=== PATIENT | male | born 1975 | race African-American/Black ===

== ENCOUNTER 2018-01-16 08:10 | Observation (INO) | payer SELFPAY ==
[2018-01-16] VITALS (7 sets, daily range): BP systolic 129–147; BP diastolic 74–84; PULSE 66–83; RESP 16–18; TEMP 97–98.5; O2SAT 98–100
[~2018-01-16] VITALS: Ht 177.8 cm; Wt 78.0 kg
[~2018-01-16 08:10] MED LIST: Z.0.NO CURRENT MEDS
[2018-01-16] MEDS ORDERED: SODIUM CHLOR 0.9% 1000 ML INJ 1,000 ML IV ONE ×2 (08:30→10:45)
[2018-01-16] MEDS ORDERED: KETOROLAC TROMETHAMINE 30 MG/ML (IVP) VIAL IV PUSH ONE (08:30)
[2018-01-16 08:45] LABS: AUTOMATED NEUTROPHIL # 10.3 TH/MM3 (1.8-7.7); BASOPHIL % 0.2 % (0.0-2.0); EOSINOPHIL % 0.2 % (0.0-4.0); HEMATOCRIT 38.4 % (39.0-51.0); HEMOGLOBIN 12.9 GM/DL (13.0-17.0); LYMPH % 9.2 % (9.0-44.0); LYMPHOCYTE # 1.1 TH/MM3 (1.0-4.8); MEAN CELL VOLUME 90.7 FL (80.0-100.0); MEAN CORPUSCULAR HEMOGLOBIN 30.4 PG (27.0-34.0); MEAN CORPUSCULAR HGB CONC 33.5 % (32.0-36.0); MEAN PLATELET VOLUME 7.2 FL (7.0-11.0); MONOCYTE # 0.7 TH/MM3 (0-0.9); NEUT % 84.4 % (16.0-70.0); PLATELET COUNT 304 TH/MM3 (150-450); RED BLOOD COUNT 4.24 MIL/MM3 (4.50-5.90); RED CELL DISTRIBUTION WIDTH 13.1 % (11.6-17.2); WHITE BLOOD COUNT 12.2 TH/MM3 (4.0-11.0)
--- NOTE | 2018-01-16 08:53 | PD ---
HPI Chief Complaint: Abdominal Pain Time Seen by Provider: 08:18 Travel History International Travel<30 days: No Contact w/Intl Traveler<30days: No Traveled to known affect area: No History of Present Illness HPI 42 y/o male presents with diffuse abdominal pain since 415 this morning. He states he was fine last evening and ate a large pizza and had a couple of beers in the pain did not start till this morning. He denies any other concurrent complaints. Quality is sharp. Severity is moderate. He denies any specific modifying factors. He denies any specific migration. He denies recurrent history of this. [facility] Past Medical History Medical History: Denies Significant Hx Past Surgical History Surgical History: No Previous Surgery Social History Alcohol Use: Yes (2 beers daily) Tobacco Use: Yes (1/2 ppd) Substance Use: Yes (Notes marijuana use) Allergies-Medications (Allergen,Severity, Reaction): Coded Allergies: No Known Allergies (Verified Allergy, Mild, 04/07/07) Reported Meds & Prescriptions Reported Meds & Active Scripts Active Reported No Current Meds (Miscellaneous Medication) Misc Review of Systems Except as stated in HPI: all other systems reviewed are Neg Physical Exam Narrative GENERAL: 42-year-old male in no apparent distress SKIN: Focused skin assessment warm/dry. HEAD: Atraumatic. Normocephalic. EYES: Pupils equal and round. No scleral icterus. No injection or drainage. ENT: No nasal bleeding or discharge. Mucous membranes pink and moist. NECK: Trachea midline. CARDIOVASCULAR: Regular rate and rhythm. RESPIRATORY: No accessory muscle use. Clear to auscultation. Breath sounds equal bilaterally. GASTROINTESTINAL: Abdomen soft, diffusely tender, nondistended. No rebound or guarding MUSCULOSKELETAL: No obvious deformities. No clubbing. No cyanosis. No edema. NEUROLOGICAL: Awake and alert. No obvious cranial nerve deficits. Motor grossly within normal limits. Normal speech. Data Data Last Documented VS Vital Signs Date Time Temp Pulse Resp B/P (MAP) Pulse Ox O2 Delivery O2 Flow Rate FiO2 01/16/18 09:51 18 01/16/18 08:26 66 147/74 (98) 99 Room Air 01/16/18 08:13 97.5 Orders Orders Complete Blood Count With Diff (01/16/18 08:20) Comprehensive Metabolic Panel (01/16/18 08:20) Urinalysis - C+S If Indicated (01/16/18 08:20) Lipase (01/16/18 08:20) Iv Access Insert/Monitor (01/16/18 08:20) Oximetry (01/16/18 08:20) Ct Abd/Pel W Iv Contrast(Rout) (01/16/18 ) Ketorolac Inj (Toradol Inj) (01/16/18 08:30) Sodium Chlor 0.9% 1000 Ml Inj (Ns 1000 M (01/16/18 08:30) Iohexol 350 Inj (Omnipaque 350 Inj) (01/16/18 09:58) Morphine Inj (Morphine Inj) (01/16/18 10:30) Admit Order (Ed Use Only) (01/16/18 10:35) Labs Laboratory Tests Test 01/16/18 08:30 White Blood Count 12.2 TH/MM3 Red Blood Count 4.24 MIL/MM3 Hemoglobin 12.9 GM/DL Hematocrit 38.4 % Mean Corpuscular Volume 90.7 FL Mean Corpuscular Hemoglobin 30.4 PG Mean Corpuscular Hemoglobin Concent 33.5 % Red Cell Distribution Width 13.1 % Platelet Count 304 TH/MM3 Mean Platelet Volume 7.2 FL Neutrophils (%) (Auto) 84.4 % Lymphocytes (%) (Auto) 9.2 % Monocytes (%) (Auto) 6.0 % Eosinophils (%) (Auto) 0.2 % Basophils (%) (Auto) 0.2 % Neutrophils # (Auto) 10.3 TH/MM3 Lymphocytes # (Auto) 1.1 TH/MM3 Monocytes # (Auto) 0.7 TH/MM3 Eosinophils # (Auto) 0.0 TH/MM3 Basophils # (Auto) 0.0 TH/MM3 CBC Comment DIFF FINAL Differential Comment Blood Urea Nitrogen 11 MG/DL Creatinine 1.07 MG/DL Random Glucose 136 MG/DL Total Protein 7.7 GM/DL Albumin 4.0 GM/DL Calcium Level 9.3 MG/DL Alkaline Phosphatase 82 U/L Aspartate Amino Transf (AST/SGOT) 94 U/L Alanine Aminotransferase (ALT/SGPT) 79 U/L Total Bilirubin 1.0 MG/DL Sodium Level 141 MEQ/L Potassium Level 3.7 MEQ/L Chloride Level 109 MEQ/L Carbon Dioxide Level 26.5 MEQ/L Anion Gap 6 MEQ/L Lipase 3702 U/L [facility] Medical Decision Making Medical Screen Exam Complete: Yes Emergency Medical Condition: Yes Medical Record Reviewed: Yes (Past history confirmed) Interpretation(s) CBC & BMP Diagram 01/16/18 08:30 Total Protein 7.7, Albumin 4.0, Calcium Level 9.3, Alkaline Phosphatase 82, Aspartate Amino Transf (AST/SGOT) 94 H, Alanine Aminotransferase (ALT/SGPT) 79 H , Total Bilirubin 1.0 Last 24 hours Impressions Abdomen/Pelvis CT 01/16/18 0000 Signed Impressions: Service Date/Time: Tuesday, January 16, 2018 09:53 - CONCLUSION: 1. Slight indistinctness of the pancreas and minimal peripancreatic stranding, pancreatitis cannot be excluded. Correlation with amylase/lipase levels. 2. Remainder of the abdomen/pelvis otherwise unremarkable. Donald العلي MD lipase elevation noted Differential Diagnosis Gastritis, pancreatitis, kidney stone, colitis, diverticulitis Narrative Course We will check blood work, urinalysis, CT scan abdominal pelvis and dose with Toradol and reevaluate as patient states he does not have a ride today ED workup with pancreatitis. Patient with return of pain so will dose with morphine and patient agrees to admission for pain control and further care Physician Communication Physician Communication resident team agrees to admit Diagnosis Primary Impression: Pancreatitis Qualified Codes: K85.20 - Alcohol induced acute pancreatitis without necrosis or infection Admitting Information Admitting Physician Requests: Admit Cierra Pickett MD Jan 16, 2018 08:53
[2018-01-16 09:08] LABS: AST (GOT) 94 U/L (15-37); BICARBONATE 26.5 MEQ/L (21.0-32.0); BLOOD UREA NITROGEN 11 MG/DL (7-18); CALCIUM 9.3 MG/DL (8.5-10.1); CHLORIDE 109 MEQ/L (98-107); CREATININE 1.07 MG/DL (0.60-1.30); GLUCOSE,RANDOM 136 MG/DL (74-106); SODIUM (NA) 141 MEQ/L (136-145)
[2018-01-16 09:10] LABS: ALT (GPT) 79 U/L (12-78)
[2018-01-16 09:11] LABS: ALKALINE PHOSPHATASE 82 U/L (45-117); TOTAL PROTEIN 7.7 GM/DL (6.4-8.2)
[2018-01-16] MEDS ORDERED: IOHEXOL 350 MG/ML 10 ML VIAL (for RAD DIAG) IVCONTRAST ONE (09:58)
--- NOTE | 2018-01-16 10:07 | RADRPT ---
EXAM DATE/TIME: 01/16/2018 09:53 [facility] COMPARISON: No previous studies available for comparison. INDICATIONS : Abdominal pain. IV CONTRAST: 85 cc Omnipaque 350 (iohexol) IV ORAL CONTRAST: No oral contrast ingested. RADIATION DOSE: 5.24 CTDIvol (mGy) MEDICAL HISTORY : None SURGICAL HISTORY : None. ENCOUNTER: Initial ACUITY: 1 day PAIN SCALE: 9/10 LOCATION: Abdomen. TECHNIQUE: Volumetric scanning of the abdomen and pelvis was performed. Using automated exposure control and ad justment of the mA and/or kV according to patient size, radiation dose was kept as low as reasonably achievable to obtain optimal diagnostic quality images. DICOM format image data is available electro nically for review and comparison. FINDINGS: LOWER LUNGS: The visualized lower lungs are clear. LIVER: Homogeneous density without lesion. There is no dilation of the biliary tree. No calcified gallston es. SPLEEN: Normal size without lesion. PANCREAS: Slight indistinctness with minimal peripancreatic stranding. No mass or fluid collections. KIDNEYS: Normal in size and shape. There is no mass, stone or hydronephrosis. ADRENAL GLANDS: Within normal limits. VASCULAR: There is no aortic aneurysm. BOWEL/MESENTERY: The stomach, small bowel, and colon demonstrate no acute abnormality. There is no free intraperitone al air or fluid. ABDOMINAL WALL: Within normal limits. RETROPERITONEUM: There is no lymphadenopathy. BLADDER: No wall thickening or mass. REPRODUCTIVE: Within normal limits. INGUINAL: There is no lymphadenopathy or hernia on the right. Small left fat containing inguinal hernia. MUSCULOSKELETAL: Within normal limits for patient age. CONCLUSION: 1. Slight indistinctness of the pancreas and minimal peripancreatic stranding, pancreatitis cannot be excluded. Correlation with amylase/lipase levels. 2. Remainder of the abdomen/pelvis otherwise unremarkable. Donald العلي MD on January 16, 2018 at 10:03 Board Certified Radiologist. This report was verified electronically.
[2018-01-16] MEDS ORDERED: MORPHINE SULFATE 4 MG/ML INJ IV PUSH ONE (10:30)
--- NOTE | 2018-01-16 11:00 | HHI.HP ---
HPI Service Family Medicine Primary Care Physician No Primary Care Physician Admission Diagnosis pancreatitis Diagnoses: International Travel<30 Days: No Contact w/Intl Traveler<30days: No Known Affected Area: No History of Present Illness 42 y/o M, comes in with abdominal pain. He woke up at 2AM and felt severe pain in the LLQ radiating to the epigastric area. The pain is sharp like a knife. He denies any radiation down the back or groin areas. The pain has been getting progressively worse through the day. He has been nauseas as well. Denies constipation/diarrhea. He has had normal BMs this morning. Denies any change in urination. He used to have biliary colic but hasn't had issues in years. He felt a brief pain in his LUQ for 30minutes on Monday. His last drink was at 9PM last night, he had 4-5 beers. He usually just drinks on weekends. He denies ever drinking any liquor. Denies any chest pain/ shortness of breath/dizziness. Review of Systems Constitutional: DENIES: Fever, Weight loss Endocrine: DENIES: Polyuria Eyes: DENIES: Vision loss Ears, nose, mouth, throat: DENIES: Oral lesions, Throat pain Respiratory: DENIES: Cough, Wheezing Cardiovascular: DENIES: Palpitations, Syncope Gastrointestinal: DENIES: Diarrhea, Vomiting Genitourinary: DENIES: Urinary frequency, Urinary incontinence Integumentary: DENIES: Rash Neurologic: DENIES: Headache Psychiatric: DENIES: Mood changes, Depression Past Family Social History Past Medical History HTN GERD Past Surgical History L shoulder surgery x 2 (>10years ago) R knee arthroscopy in 2010, meniscal injury Allergies: Coded Allergies: No Known Allergies (Verified Allergy, Mild, 04/07/07) Family History Brother - [place] Social History smoking: never alcohol: 4-5 beers 2 days/week 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 SKIN: No rashes, ecchymoses or lesions. Cool and dry. HEAD: Atraumatic. Normocephalic. No temporal or scalp tenderness. EYES: Pupils equal round and reactive. Extraocular motions intact. No scleral icterus. No injection or drainage. ENT: Nose without bleeding, purulent drainage or septal hematoma. Throat without erythema, tonsillar hypertrophy or exudate. Uvula midline. Airway patent. NECK: Trachea midline. No JVD or lymphadenopathy. Supple, nontender, no meningeal signs. CARDIOVASCULAR: Regular rate and rhythm without murmurs, gallops, or rubs. RESPIRATORY: Clear to auscultation. Breath sounds equal bilaterally. No wheezes , rales, or rhonchi. GASTROINTESTINAL: Abdomen soft, tender to mild palpation of left upper quadrant and left lower quadrant, tender in epigastric area, nondistended. No hepato- splenomegaly, or palpable masses. No guarding. Positive bowel sounds. No peritoneal signs. MUSCULOSKELETAL: Extremities without clubbing, cyanosis, or edema. No joint tenderness, effusion, or edema noted. No calf tenderness. Negative Homans sign bilaterally. NEUROLOGICAL: Awake and alert. Cranial nerves II through XII intact. Motor and sensory grossly within normal limits. Five out of 5 muscle strength in all muscle groups. Normal speech. Laboratory Laboratory Tests Test 01/16/18 08:30 White Blood Count 12.2 Red Blood Count 4.24 Hemoglobin 12.9 Hematocrit 38.4 Mean Corpuscular Volume 90.7 Mean Corpuscular Hemoglobin 30.4 Mean Corpuscular Hemoglobin Concent 33.5 Red Cell Distribution Width 13.1 Platelet Count 304 Mean Platelet Volume 7.2 Neutrophils (%) (Auto) 84.4 Lymphocytes (%) (Auto) 9.2 Monocytes (%) (Auto) 6.0 Eosinophils (%) (Auto) 0.2 Basophils (%) (Auto) 0.2 Neutrophils # (Auto) 10.3 Lymphocytes # (Auto) 1.1 Monocytes # (Auto) 0.7 Eosinophils # (Auto) 0.0 Basophils # (Auto) 0.0 CBC Comment DIFF FINAL Differential Comment Blood Urea Nitrogen 11 Creatinine 1.07 Random Glucose 136 Total Protein 7.7 Albumin 4.0 Calcium Level 9.3 Alkaline Phosphatase 82 Aspartate Amino Transf (AST/SGOT) 94 Alanine Aminotransferase (ALT/SGPT) 79 Total Bilirubin 1.0 Sodium Level 141 Potassium Level 3.7 Chloride Level 109 Carbon Dioxide Level 26.5 Anion Gap 6 Lipase 3702 Result Diagram: 01/16/1882901/16/18829 Caprin VTE Risk Assessment Caprin VTE Risk Assessment: No/Low Risk (score <= 1) Caprini Risk Assessment Model Point Value = 1 Point Value = 2 Point Value = 3 Point Value = 5 Age 41-60 Minor surgery BMI > 25 kg/m2 Swollen legs Varicose veins or History of unexplained or recurrent spontaneous Oral contraceptives or hormone replacement Sepsis (< 1 month) Serious lung disease, including pneumonia (< 1 month) Abnormal pulmonary function Acute myocardial infarction Congestive heart failure (< 1 month) History of inflammatory bowel disease Medical patient at bed rest Age 61-74 Arthroscopic surgery Major open surgery (> 45 min) Laparoscopic surgery (> 45 min) Malignancy Confined to bed (> 72 hours) Immobilizing plaster cast Central venous access Age >= 75 History of VTE Family history of VTE Factor V Leiden Prothrombin [id number] Lupus anticoagulant Anticardiolipin antibodies Elevated serum homocysteine Heparin-induced thrombocytopenia Other congenital or acquired thrombophilia Stroke (< 1 month) Elective arthroplasty Hip, pelvis, or leg fracture Acute spinal cord injury (< 1 month) Prophylaxis Regimen Total Risk Factor Score Risk Level Prophylaxis Regimen 0-1 Low Early ambulation 2 Moderate Order ONE of the following: *Sequential Compression Device (SCD) *Heparin 5000 units SQ BID 3-4 Higher Order ONE of the following medications: *Heparin 5000 units SQ TID *Enoxaparin/Lovenox 40 mg SQ daily (WT < 150 kg, CrCl > 30 mL/min) *Enoxaparin/Lovenox 30 mg SQ daily (WT < 150 kg, CrCl > 10-29 mL/min) *Enoxaparin/Lovenox 30 mg SQ BID (WT < 150 kg, CrCl > 30 mL/min) AND/OR *Sequential Compression Device (SCD) 5 or more Highest Order ONE of the following medications: *Heparin 5000 units SQ TID (Preferred with Epidurals) *Enoxaparin/Lovenox 40 mg SQ daily (WT < 150 kg, CrCl > 30 mL/min) *Enoxaparin/Lovenox 30 mg SQ daily (WT < 150 kg, CrCl > 10-29 mL/min) *Enoxaparin/Lovenox 30 mg SQ BID (WT < 150 kg, CrCl > 30 mL/min) AND *Sequential Compression Device (SCD) Assessment and Plan Assessment and Plan 42-year-old male, occasional drinker with possible history of biliary colic, presents with pancreatitis. Code Status Full code Problem List: (1) Pancreatitis ICD Codes: K85.90 - Acute pancreatitis without necrosis or infection, unspecified Status: Acute Plan: Alcohol-induced pancreatitis versus gallstone pancreatitis IV fluid hydration at 200 mls/hr Pain control with scheduled IV Toradol Dilaudid for breakthrough pain Zofran for nausea control Follow-up abdominal ultrasound Follow-up serum alcohol level CT with contrast: Slight indistinctness of the pancreas, minimal peripancreatic stranding, pancreatitis cannot be excluded. Correlation with amylase/lipase levels (2) Alcohol use ICD Codes: Z78.9 - Other specified health status Status: Chronic Plan: Possible history of alcohol abuse [facility] protocol Follow-up serum alcohol level f/u urine drug screen (3) Hypertension ICD Codes: I10 - Essential (primary) hypertension Status: Chronic Plan: BP is normal Continue home medication (4) fen/ppx Status: Chronic Plan: Fluids: 1.5 maintenance fluids Electrolytes: BMP normal, follow-up BNP in a.m. Nutrition: N.p.o. until reevaluation tomorrow GI prophylaxis: Continue Protonix 20 mg daily DVT prophylaxis: Lovenox 40 mg daily Physician Certification 2 Midnight Certification Type: Admission for Inpatient Services Order for Inpatient Services The services are ordered in accordance with Medicare regulations or non- Medicare payer requirements, as applicable. In the case of services not specified as inpatient-only, they are appropriately provided as inpatient services in accordance with the 2-midnight benchmark. Estimated LOS (days): 2 days is the estimated time the patient will need to remain in the hospital, assuming treatment plan goals are met and no additional complications. Post-Hospital Plan: Home Problem Qualifiers (1) Pancreatitis: Qualified Codes: K85.20 - Alcohol induced acute pancreatitis without necrosis or infection Mónica Alvarado MD R2 Jan 16, 2018 11:00
[2018-01-16] MEDS ORDERED: ONDANSETRON HCL 4 MG/2 ML VIAL IV PUSH PRN (11:30)
[2018-01-16] MEDS ORDERED: SODIUM CHLORIDE 0.9% FLUSH 10 ML FLUSH IV FLUSH PRN ×2 (11:30→15:45)
[2018-01-16] MEDS: PANTOPRAZOLE SOD 20 MG DELAYED RELEASE TAB PO SCH (12:41)
[2018-01-16] MEDS: ENOXAPARIN SODIUM 40 MG/0.4 ML SYRINGE SQ SCH (12:41)
[2018-01-16] MEDS: KETOROLAC TROMETHAMINE 30 MG/ML (IVP) VIAL IVP SCH ×2 (12:42→20:00)
[2018-01-16 12:55] LABS: BILIRUBIN, URINE NEG (NEG); BLOOD, URINE NEG (NEG); GLUCOSE,URINE NEG (NEG); KETONE, URINE NEG (NEG); MUCUS URINE FEW /lpf (OCC); NITRITE,URINE NEG (NEG); PH, URINE 5.5 (5.0-8.5); SQUAMOUS EPITHELIAL CELL URINE <1 /hpf (0-5); URINE COLOR YELLOW (YELLW/STRAW); URINE LEUKOCYTE ESTERASE NEG (NEG)
[2018-01-16 13:31] LABS: ALBUMIN 3.4 GM/DL (3.4-5.0); ALKALINE PHOSPHATASE 71 U/L (45-117); ALT (GPT) 61 U/L (12-78); AST (GOT) 67 U/L (15-37); BICARBONATE 23.6 MEQ/L (21.0-32.0); BLOOD UREA NITROGEN 8 MG/DL (7-18); C-REACTIVE PROTEIN LESS THAN 0.29 MG/DL (0.00-0.30); CALCIUM 8.3 MG/DL (8.5-10.1); CHLORIDE 110 MEQ/L (98-107); CREATININE 0.85 MG/DL (0.60-1.30); GLOMERULAR FILTRATION RATE 119 ML/MIN (>89); GLUCOSE,FASTING 110 MG/DL (74-99); GLUCOSE,RANDOM 110 MG/DL (74-106); SODIUM (NA) 143 MEQ/L (136-145); TOTAL BILIRUBIN ADULT 1.1 MG/DL (0.2-1.0); TOTAL PROTEIN 6.5 GM/DL (6.4-8.2); TRIGLYCERIDES 140 MG/DL (42-150)
[2018-01-16] MEDS: SODIUM CHLOR 0.9% 1000 ML INJ 1,000 ML IV SCH ×2 (15:32→18:09)
[2018-01-16] MEDS: HYDROmorphone HCL PF 2 MG/ML VIAL IV PUSH PRN (15:32)
[2018-01-16] MEDS ORDERED: LORazepam 2 MG/ML VIAL IV PUSH PRN ×4 (15:45)
[2018-01-16] MEDS ORDERED: FLUMAZENIL 0.5 MG/5 ML VIAL IV PUSH PRN (15:45)
[2018-01-16] MEDS ORDERED: LORazepam 1 MG TAB PO PRN (15:45)
[2018-01-16] MEDS ORDERED: LORazepam 2 MG TAB PO PRN (15:45)
--- NOTE | 2018-01-16 17:36 | RADRPT ---
EXAM DATE/TIME: 01/16/2018 16:38 [facility] COMPARISON: No previous studies available for comparison. INDICATIONS : Right upper quadrant pain. MEDICAL HISTORY : Alcohol use. Substance use. Tobacco use. SURGICAL HISTORY : None. ENCOUNTER: Initial ACUITY: 1 day PAIN SCORE: 6/10 LOCATION: Right upper quadrant MEASUREMENTS: LIVER: 17.0 cm length COMMON DUCT: 5 mm RIGHT KIDNEY: 10.9 x 4.1 x 4.7 cm FINDINGS: LIVER: Normal echotexture without focal lesion or ductal dilatation. COMMON DUCT: No intraluminal mass or stone visualized. GALLBLADDER: Contains no stones, demonstrates no wall thickening or pericholecystic fluid. PANCREAS: The visualized portions are within normal limits. RIGHT KIDNEY: No evidence of hydronephrosis, stone, or mass. MISCELLANEOUS: Minimal amount of ascites just inferior to the right kidney/liver CONCLUSION: 1. Minimal amount of ascites inferior to the kidney and liver. 2. Otherwise negative. Patrick Jones MD on January 16, 2018 at 17:33 Board Certified Radiologist. This report was verified electronically.
[2018-01-16] MEDS: MULTIVITAMIN INJ 10 ML, FOLIC ACID INJ 1 MG in SODIUM CHLORID 0.9% 500 ML INJ 500 ML IV SCH (18:08)
[2018-01-16] MEDS: SODIUM CHLORIDE 0.9% FLUSH 10 ML FLUSH IV FLUSH SCH (21:00)
[2018-01-16] MEDS ORDERED: SODIUM CHLORIDE 0.9% FLUSH 10 ML FLUSH IV FLUSH SCH (21:00)
[2018-01-17] MEDS: THIAMINE INJ 100 MG in SODIUM CHLORIDE 0.9% INJ 100 ML IV SCH ×2 (00:12→17:17)
[2018-01-17] MEDS: SODIUM CHLOR 0.9% 1000 ML INJ 1,000 ML IV SCH ×5 (00:17→18:28)
[2018-01-17 02:16] VITALS: BP 142/80; PULSE 65; RESP 16; TEMP 99.1; O2SAT 97
[2018-01-17] MEDS: KETOROLAC TROMETHAMINE 30 MG/ML (IVP) VIAL IVP SCH ×3 (03:55→19:58)
[2018-01-17 05:27] LABS: BASOPHIL % 0.1 % (0.0-2.0); EOSINOPHIL # 0.2 TH/MM3 (0-0.4); HEMATOCRIT 31.6 % (39.0-51.0); HEMOGLOBIN 10.7 GM/DL (13.0-17.0); LYMPH % 12.3 % (9.0-44.0); LYMPHOCYTE # 1.1 TH/MM3 (1.0-4.8); MEAN CORPUSCULAR HEMOGLOBIN 30.9 PG (27.0-34.0); MEAN PLATELET VOLUME 7.7 FL (7.0-11.0); MONO % 7.3 % (0.0-8.0); MONOCYTE # 0.7 TH/MM3 (0-0.9); NEUT % 78.3 % (16.0-70.0); PLATELET COUNT 237 TH/MM3 (150-450); RED BLOOD COUNT 3.47 MIL/MM3 (4.50-5.90); RED CELL DISTRIBUTION WIDTH 12.9 % (11.6-17.2)
[2018-01-17 05:51] LABS: ALBUMIN 2.8 GM/DL (3.4-5.0); ALKALINE PHOSPHATASE 59 U/L (45-117); ALT (GPT) 43 U/L (12-78); AST (GOT) 34 U/L (15-37); BICARBONATE 24.2 MEQ/L (21.0-32.0); BLOOD UREA NITROGEN 4 MG/DL (7-18); CALCIUM 8.1 MG/DL (8.5-10.1); CHLORIDE 113 MEQ/L (98-107); CREATININE 0.73 MG/DL (0.60-1.30); GLOMERULAR FILTRATION RATE 141 ML/MIN (>89); GLUCOSE,RANDOM 104 MG/DL (74-106); SODIUM (NA) 145 MEQ/L (136-145); TOTAL BILIRUBIN ADULT 1.3 MG/DL (0.2-1.0); TOTAL PROTEIN 5.7 GM/DL (6.4-8.2)
[2018-01-17 05:54] VITALS: BP 134/73; PULSE 65; RESP 16; TEMP 98.4; O2SAT 98
--- NOTE | 2018-01-17 06:33 | HHI.FPPN ---
Subjective Remarks Nadir Bassett is a 42yo gentleman with medical history significant for HTN, GERD, and 4 drinks 2x/week admitted for pancreatitis. This note is written in conjunction with resident H&P dated 01/17/2018. Please note that initial H&P dated 01/16/18 is incorrect. He had sudden onset abdominal pain as described in H&P early in the morning of , after drinking ~4 beers the night prior. This morning, he reports pain is a bit better but persists. He is hungry. He has some nausea. ROS: Per resident H&P. PMH/PSxH/SocHx/FamHx: Per resident H&P. He denies significant medical history. He drinks 6 beers per day. He denies any alcohol withdrawal in the past when stopping alcohol consumption for a few days. Objective Vitals Vital Signs Date Time Temp Pulse Resp B/P (MAP) Pulse Ox O2 Delivery O2 Flow Rate FiO2 01/17/18 05:54 98.4 65 16 134/73 (93) 98 01/17/18 02:16 99.1 65 16 142/80 (100) 97 01/16/18 19:24 98.5 68 18 129/75 (93) 98 01/16/18 18:31 98.2 72 18 143/83 (103) 98 01/16/18 15:36 97.7 66 17 135/74 (94) 100 01/16/18 13:18 97.0 69 17 135/74 (94) 99 01/16/18 10:58 18 01/16/18 09:51 18 01/16/18 08:26 66 18 147/74 (98) 99 Room Air 01/16/18 08:25 99 Room Air 01/16/18 08:13 97.5 83 16 143/84 (103) 100 Result Diagram: 01/17/18 0430 01/17/18 0430 Objective Remarks Per resident H&P. Significant findings: In NAD, no resp distress, nontoxic. CTAB. +BS, soft, nondistended. + tenderness to palpation throughout abdomen. No rebound, no guarding. No CVAT. No edema. A/P Assessment and Plan 42-year-old male, occasional drinker with possible history of biliary colic, presents with pancreatitis. Attending Attestation Patient seen, examined, and discussed with resident team. Problem List: (1) Pancreatitis ICD Codes: K85.90 - Acute pancreatitis without necrosis or infection, unspecified Status: Acute Plan: Likely Alcohol-induced pancreatitis; gallbladder US negative for stones IV fluid hydration at 200 mls/hr Pain control with scheduled IV Toradol Dilaudid for breakthrough pain Zofran for nausea control CT with contrast: Slight indistinctness of the pancreas, minimal peripancreatic stranding, pancreatitis cannot be excluded. Correlation with amylase/lipase levels US gallbladder: minimal amount of ascites inferior to liver and kidney. Otherwise negative. (2) Alcohol use ICD Codes: Z78.9 - Other specified health status Status: Chronic Plan: Possible history of alcohol abuse [facility] protocol Thiamine, Folate, MVI Urine drug screen positive for opiates and marijuana. Of note, pt received opiates prior to urine drug screen collection. (3) Normocytic anemia ICD Codes: D64.9 - Anemia, unspecified Status: Acute Plan: Uncertain if acute or chronic. No obvious active bleeding. Hemodynamically stable. This may be secondary to acute illness. (4) Hypokalemia ICD Codes: E87.6 - Hypokalemia Status: Acute Plan: Mild. Asymptomatic. Replete Problem Qualifiers (1) Pancreatitis: Qualified Codes: K85.20 - Alcohol induced acute pancreatitis without necrosis or infection Rehana Fernandes MD Jan 17, 2018 06:33
[2018-01-17 07:02] VITALS: BP 144/69; PULSE 62; RESP 18; TEMP 98.3; O2SAT 98
[2018-01-17] MEDS ORDERED: LOSARTAN 50 MG TAB PO SCH (09:00)
[2018-01-17] MEDS: POTASSIUM CHLORIDE 10 MEQ CONTROLLED RELEASE TAB PO SCH (09:03)
[2018-01-17] MEDS: PANTOPRAZOLE SOD 20 MG DELAYED RELEASE TAB PO SCH (09:03)
[2018-01-17] MEDS: SODIUM CHLORIDE 0.9% FLUSH 10 ML FLUSH IV FLUSH SCH ×3 (09:03→23:22)
[2018-01-17 11:05] VITALS: BP 150/85; PULSE 74; RESP 18; TEMP 98; O2SAT 98
--- NOTE | 2018-01-17 12:01 | HHI.HP ---
HPI Service Family Medicine Primary Care Physician No Primary Care Physician Admission Diagnosis pancreatitis Diagnoses: (1) Pancreatitis (2) Alcohol use (3) Hypertension (4) Normocytic anemia (5) Hypokalemia International Travel<30 Days: No Contact w/Intl Traveler<30days: No Known Affected Area: No History of Present Illness PREVIOUS H&P IS ENTERED IN ERROR (FROM DIFFERENT PATIENT), THIS IS THE ACTUAL H& P 42 y/o M, comes in with abdominal pain. He woke up at 4:30AM and felt severe pain in the LLQ radiating to the epigastric area. The night before he had presented he had had a pizza and 6 beers. The pain is sharp like a knife. He denies any radiation down the back or groin areas. The pain has been getting progressively worse through the day. He has been nauseas as well and has not been able to eat anything. Denies constipation/diarrhea. Denies any change in urination. His last drink was the 6 beers he drinks last night. He states he does frequently drink 6 beers casually. He has about 1 shot every 2 weeks of liquor. He usually just drinks on weekends. Denies any chest pain/shortness of breath/dizziness. Review of Systems Constitutional: DENIES: Fever, Weight gain Endocrine: DENIES: Polyuria, Polyphagia Eyes: DENIES: Eye pain Ears, nose, mouth, throat: DENIES: Oral lesions, Throat pain Respiratory: DENIES: Hemoptysis, Sputum production Cardiovascular: DENIES: Dyspnea on Exertion, PND Gastrointestinal: DENIES: Black stools, Bloody stools Genitourinary: DENIES: Urgency, Hematuria Musculoskeletal: DENIES: Stiffness, Joint Swelling Integumentary: DENIES: Pruritus Immunologic/allergic: DENIES: Urticaria Neurologic: DENIES: Headache Psychiatric: DENIES: Mood changes, Depression Past Family Social History Past Medical History No medical history Past Surgical History No surgical history Allergies: Coded Allergies: No Known Allergies (Verified Allergy, Mild, 04/07/07) Family History No significant family history Social History smokin-2 cigarettes per day, he cannot say for how many years alcohol: 6-10 beers per day, occasionally has 1 shot drugs: Marijuana, denies any other drug use He is a cook Physical Exam Vital Signs Vital Signs Date Time Temp Pulse Resp B/P (MAP) Pulse Ox O2 Delivery O2 Flow Rate FiO2 01/17/18 11:05 98.0 74 18 150/85 (106) 98 01/17/18 07:02 98.3 62 18 144/69 (94) 98 01/17/18 05:54 98.4 65 16 134/73 (93) 98 01/17/18 02:16 99.1 65 16 142/80 (100) 97 01/16/18 19:24 98.5 68 18 129/75 (93) 98 01/16/18 18:31 98.2 72 18 143/83 (103) 98 01/16/18 15:36 97.7 66 17 135/74 (94) 100 01/16/18 13:18 97.0 69 17 135/74 (94) 99 Physical Exam GENERAL: This is a well-nourished, well-developed patient, in no apparent distress. SKIN: No rashes, ecchymoses or lesions. Cool and dry. HEAD: Atraumatic. Normocephalic. No temporal or scalp tenderness. EYES: Pupils equal round and reactive. Extraocular motions intact. No scleral icterus. No injection or drainage. ENT: Nose without bleeding, purulent drainage or septal hematoma. Throat without erythema, tonsillar hypertrophy or exudate. Uvula midline. Airway patent. NECK: Trachea midline. No JVD or lymphadenopathy. Supple, nontender, no meningeal signs. CARDIOVASCULAR: Regular rate and rhythm without murmurs, gallops, or rubs. RESPIRATORY: Clear to auscultation. Breath sounds equal bilaterally. No wheezes , rales, or rhonchi. GASTROINTESTINAL: Abdomen soft, tender to moderate palpation in lower quadrants bilaterally, nondistended. No hepato-splenomegaly, or palpable masses. No guarding. No peritoneal signs. MUSCULOSKELETAL: Extremities without clubbing, cyanosis, or edema. No joint tenderness, effusion, or edema noted. No calf tenderness. Negative Homans sign bilaterally. NEUROLOGICAL: Awake and alert. Cranial nerves II through XII intact. Motor and sensory grossly within normal limits. Five out of 5 muscle strength in all muscle groups. Normal speech. Laboratory Laboratory Tests Test 01/16/18 12:35 01/16/18 12:39 01/16/18 16:30 01/17/18 04:30 Urine Color YELLOW Urine Turbidity CLEAR Urine pH 5.5 Urine Specific [place] GREATER THAN 1.050 Urine Protein TRACE Urine Glucose (UA) NEG Urine Ketones NEG Urine Occult Blood NEG Urine Nitrite NEG Urine Bilirubin NEG Urine Urobilinogen LESS THAN 2.0 Urine Leukocyte Esterase NEG Urine RBC LESS THAN 1 Urine WBC LESS THAN 1 Urine Squamous Epithelial Cells <1 Urine Mucus FEW Microscopic Urinalysis Comment CULT NOT INDICATED Blood Urea Nitrogen 8 4 Creatinine 0.85 0.73 Random Glucose 110 104 Total Protein 6.5 5.7 Albumin 3.4 2.8 Calcium Level 8.3 8.1 Alkaline Phosphatase 71 59 Aspartate Amino Transf (AST/SGOT) 67 34 Alanine Aminotransferase (ALT/SGPT) 61 43 Total Bilirubin 1.1 1.3 Sodium Level 143 145 Potassium Level 3.6 3.2 Chloride Level 110 113 Carbon Dioxide Level 23.6 24.2 Anion Gap 9 8 Estimat Glomerular Filtration Rate 119 141 Fasting Glucose 110 C-Reactive Protein LESS THAN 0.29 Triglycerides Level 140 Ethyl Alcohol Level 6 Urine Opiates Screen POS Urine Barbiturates Screen NEG Urine Amphetamines Screen NEG Urine Benzodiazepines Screen NEG Urine Cocaine Screen NEG Urine Cannabinoids Screen POS White Blood Count 9.0 Red Blood Count 3.47 Hemoglobin 10.7 Hematocrit 31.6 Mean Corpuscular Volume 91.0 Mean Corpuscular Hemoglobin 30.9 Mean Corpuscular Hemoglobin Concent 34.0 Red Cell Distribution Width 12.9 Platelet Count 237 Mean Platelet Volume 7.7 Neutrophils (%) (Auto) 78.3 Lymphocytes (%) (Auto) 12.3 Monocytes (%) (Auto) 7.3 Eosinophils (%) (Auto) 2.0 Basophils (%) (Auto) 0.1 Neutrophils # (Auto) 7.0 Lymphocytes # (Auto) 1.1 Monocytes # (Auto) 0.7 Eosinophils # (Auto) 0.2 Basophils # (Auto) 0.0 CBC Comment DIFF FINAL Differential Comment Lipase 3323 Result Diagram: 01/17/1842901/17/18429 Caprini VTE Risk Assessment Caprini VTE Risk Assessment: No/Low Risk (score <= 1) Caprini Risk Assessment Model Point Value = 1 Point Value = 2 Point Value = 3 Point Value = 5 Age 41-60 Minor surgery BMI > 25 kg/m2 Swollen legs Varicose veins or History of unexplained or recurrent spontaneous Oral contraceptives or hormone replacement Sepsis (< 1 month) Serious lung disease, including pneumonia (< 1 month) Abnormal pulmonary function Acute myocardial infarction Congestive heart failure (< 1 month) History of inflammatory bowel disease Medical patient at bed rest Age 61-74 Arthroscopic surgery Major open surgery (> 45 min) Laparoscopic surgery (> 45 min) Malignancy Confined to bed (> 72 hours) Immobilizing plaster cast Central venous access Age >= 75 History of VTE Family history of VTE Factor V Leiden Prothrombin [id number] Lupus anticoagulant Anticardiolipin antibodies Elevated serum homocysteine Heparin-induced thrombocytopenia Other congenital or acquired thrombophilia Stroke (< 1 month) Elective arthroplasty Hip, pelvis, or leg fracture Acute spinal cord injury (< 1 month) Prophylaxis Regimen Total Risk Factor Score Risk Level Prophylaxis Regimen 0-1 Low Early ambulation 2 Moderate Order ONE of the following: *Sequential Compression Device (SCD) *Heparin 5000 units SQ BID 3-4 Higher Order ONE of the following medications: *Heparin 5000 units SQ TID *Enoxaparin/Lovenox 40 mg SQ daily (WT < 150 kg, CrCl > 30 mL/min) *Enoxaparin/Lovenox 30 mg SQ daily (WT < 150 kg, CrCl > 10-29 mL/min) *Enoxaparin/Lovenox 30 mg SQ BID (WT < 150 kg, CrCl > 30 mL/min) AND/OR *Sequential Compression Device (SCD) 5 or more Highest Order ONE of the following medications: *Heparin 5000 units SQ TID (Preferred with Epidurals) *Enoxaparin/Lovenox 40 mg SQ daily (WT < 150 kg, CrCl > 30 mL/min) *Enoxaparin/Lovenox 30 mg SQ daily (WT < 150 kg, CrCl > 10-29 mL/min) *Enoxaparin/Lovenox 30 mg SQ BID (WT < 150 kg, CrCl > 30 mL/min) AND *Sequential Compression Device (SCD) Assessment and Plan Assessment and Plan 42-year-old male, occasional drinker with possible history of biliary colic, presents with pancreatitis. Code Status Full code Discussed Condition With Dr. Dom Burns Problem List: (1) Pancreatitis ICD Codes: K85.90 - Acute pancreatitis without necrosis or infection, unspecified Status: Acute Plan: Likely Alcohol-induced pancreatitis; gallbladder US negative for stones IV fluid hydration at 200 mls/hr Pain control with scheduled IV Toradol Dilaudid for breakthrough pain Zofran for nausea control Advance diet as tolerated CT with contrast: Slight indistinctness of the pancreas, minimal peripancreatic stranding, pancreatitis cannot be excluded. Correlation with amylase/lipase levels US gallbladder: minimal amount of ascites inferior to liver and kidney. Otherwise negative. (2) Alcohol use ICD Codes: Z78.9 - Other specified health status Status: Chronic Plan: Possible history of alcohol abuse CIWA protocol Thiamine, Folate, MVI Urine drug screen positive for opiates and marijuana. Of note, pt received opiates prior to urine drug screen collection. (3) Normocytic anemia ICD Codes: D64.9 - Anemia, unspecified Status: Acute Plan: Uncertain if acute or chronic. No obvious active bleeding. Hemodynamically stable. This may be secondary to acute illness. (4) Hypokalemia ICD Codes: E87.6 - Hypokalemia Status: Acute Plan: Mild. Asymptomatic. Replete (5) fen/ppx Status: Chronic Plan: Fluids: Continue generous IV fluids Electrolytes: Follow-up BMP and replete as needed Nutrition: Advance diet as tolerated GI prophylaxis: Continue Protonix DVT prophylaxis: Continue Lovenox daily Physician Certification 2 Midnight Certification Type: Admission for Inpatient Services Order for Inpatient Services The services are ordered in accordance with Medicare regulations or non- Medicare payer requirements, as applicable. In the case of services not specified as inpatient-only, they are appropriately provided as inpatient services in accordance with the 2-midnight benchmark. Estimated LOS (days): 2 days is the estimated time the patient will need to remain in the hospital, assuming treatment plan goals are met and no additional complications. Post-Hospital Plan: Home Problem Qualifiers (1) Pancreatitis: Qualified Codes: K85.20 - Alcohol induced acute pancreatitis without necrosis or infection (2) Hypertension: Qualified Codes: I10 - Essential (primary) hypertension Mónica Alvarado MD R2 Jan 17, 2018 12:01
[2018-01-17] MEDS: ENOXAPARIN SODIUM 40 MG/0.4 ML SYRINGE SQ SCH (12:03)
[2018-01-17 14:58] VITALS: BP 152/77; PULSE 71; RESP 18; TEMP 98.2; O2SAT 99
[2018-01-17] MEDS: MULTIVITAMIN INJ 10 ML, FOLIC ACID INJ 1 MG in SODIUM CHLORID 0.9% 500 ML INJ 500 ML IV SCH (18:32)
[2018-01-17] MEDS: HYDROmorphone HCL PF 2 MG/ML VIAL IV PUSH PRN (23:22)
[2018-01-18 00:17] VITALS: BP 133/67; PULSE 71; RESP 16; TEMP 97.9; O2SAT 97
[2018-01-18] MEDS: SODIUM CHLOR 0.9% 1000 ML INJ 1,000 ML IV SCH ×3 (01:16→08:27)
[2018-01-18] MEDS: KETOROLAC TROMETHAMINE 30 MG/ML (IVP) VIAL IVP SCH (04:00)
[2018-01-18] MEDS: SODIUM CHLORIDE 0.9% FLUSH 10 ML FLUSH IV FLUSH SCH (04:00)
[2018-01-18 06:21] VITALS: BP 142/86; PULSE 76; RESP 16; TEMP 97.9; O2SAT 99
[2018-01-18 07:23] VITALS: BP 140/83; PULSE 68; RESP 16; TEMP 97.7; O2SAT 98
[2018-01-18] MEDS: POTASSIUM CHLORIDE 10 MEQ CONTROLLED RELEASE TAB PO SCH (08:06)
[2018-01-18] MEDS: PANTOPRAZOLE SOD 20 MG DELAYED RELEASE TAB PO SCH (08:06)
[2018-01-18 09:22] LABS: HEMATOCRIT 36.5 % (39.0-51.0); HEMOGLOBIN 11.9 GM/DL (13.0-17.0); MEAN CELL VOLUME 91.9 FL (80.0-100.0); MEAN CORPUSCULAR HGB CONC 32.6 % (32.0-36.0); MEAN PLATELET VOLUME 8.1 FL (7.0-11.0); PLATELET COUNT 247 TH/MM3 (150-450); RED BLOOD COUNT 3.98 MIL/MM3 (4.50-5.90); RED CELL DISTRIBUTION WIDTH 13.1 % (11.6-17.2); WHITE BLOOD COUNT 10.4 TH/MM3 (4.0-11.0)
--- NOTE | 2018-01-18 09:24 | HHI.FPPN ---
Subjective Remarks Patient seen and examined bedside this morning. He states he feels 100% better and tolerated broth and popsicles overnight with no difficulty. He is dressed and sitting on edge of bed requesting to go home. he denies any N/V. Denies any CP/SOB/dizzyness. (Mónica Alvarado MD R2) Objective Vitals Vital Signs Date Time Temp Pulse Resp B/P (MAP) Pulse Ox O2 Delivery O2 Flow Rate FiO2 01/18/18 07:23 97.7 68 16 140/83 (102) 98 01/18/18 06:21 97.9 76 16 142/86 (104) 99 01/18/18 05:23 16 01/18/18 01:17 16 01/18/18 00:17 97.9 71 16 133/67 (89) 97 01/17/18 14:58 98.2 71 18 152/77 (102) 99 01/17/18 11:05 98.0 74 18 150/85 (106) 98 I/O 01/17/18 01/17/18 01/17/18 01/18/18 01/18/18 01/18/18 07:00 15:00 23:00 07:00 15:00 23:00 Intake Total 2000 ml Output Total 200 ml 2000 ml Balance 1800 ml -2000 ml Intake IV Total 2000 ml Output Urine Total 200 ml 2000 ml # Voids 1 (Mónica Alvarado MD R2) Result Diagram: 01/17/18 0430 01/17/18 0430 Objective Remarks GENERAL: SKIN: Warm and dry. HEAD: Normocephalic. EYES: No scleral icterus. No injection or drainage. NECK: Supple, trachea midline. No JVD or lymphadenopathy. CARDIOVASCULAR: Regular rate and rhythm without murmurs, gallops, or rubs. RESPIRATORY: Breath sounds equal bilaterally. No accessory muscle use. GASTROINTESTINAL: Abdomen soft, non-tender, nondistended. MUSCULOSKELETAL: No cyanosis, or edema. BACK: Nontender without obvious deformity. No CVA tenderness. (Mónica Alvarado MD R2) A/P Assessment and Plan 42-year-old male, occasional drinker with possible history of biliary colic, presents with pancreatitis. Discharge Planning plan to d/c after breakfast today (Mónica Alvarado MD R2) Attending Attestation Patient seen and examined, discussed with resident team. I agree with assessment and management as documented with me. Pt reports abdominal pain has resolved; he has tolerated regular food. Discharge home today; discussed importance of complete alcohol avoidance. (Rehana Fernandes MD) Problem List: (1) Pancreatitis ICD Codes: K85.90 - Acute pancreatitis without necrosis or infection, unspecified Status: Acute Plan: Likely Alcohol-induced pancreatitis; gallbladder US negative for stones IV fluid hydration at 200 mls/hr Pain control with scheduled IV Toradol Dilaudid for breakthrough pain Zofran for nausea control continue to advance diet this AM CT with contrast: Slight indistinctness of the pancreas, minimal peripancreatic stranding, pancreatitis cannot be excluded. Correlation with amylase/lipase levels US gallbladder: minimal amount of ascites inferior to liver and kidney. Otherwise negative. (2) Alcohol use ICD Codes: Z78.9 - Other specified health status Status: Chronic Plan: Possible history of alcohol abuse CIWA protocol: CIWA score has been 0 throughout stay Thiamine, Folate, MVI Urine drug screen positive for opiates and marijuana. Alcohol level of 6 after hours of fluids. Of note, pt received opiates prior to urine drug screen collection. (3) Normocytic anemia ICD Codes: D64.9 - Anemia, unspecified Status: Acute Plan: Uncertain if acute or chronic. No obvious active bleeding. Hemodynamically stable. This may be secondary to acute illness. f/u CBC this AM before D/C (4) Hypokalemia ICD Codes: E87.6 - Hypokalemia Status: Acute Plan: Mild. Asymptomatic. Replete (5) fen/ppx Status: Chronic Plan: Fluids: PO fluids Electrolytes: f/u BMP this AM before d/c nutrition: regular diet this AM GI ppx: continue protonix 20mg daily DVT ppx: continue lovenox daily (Mónica Alvarado MD R2) Problem Qualifiers (1) Pancreatitis: Qualified Codes: K85.20 - Alcohol induced acute pancreatitis without necrosis or infection Mónica Alvarado MD R2 Jan 18, 2018 09:24 Rehana Fernandes MD Jan 18, 2018 21:11
--- NOTE | 2018-01-18 09:26 | HHI.DCPOC ---
Discharge Care Plan Diagnosis: (1) Pancreatitis (2) Hypertension (3) Normocytic anemia Goals to Promote Your Health * To prevent worsening of your condition and complications * To maintain your health at the optimal level Directions to Meet Your Goals Take your medications as prescribed Follow your dietary instruction Follow activity as directed Keep your appointments as scheduled Take your immunizations and boosters as scheduled If your symptoms worsen call your PCP, if no PCP go to Urgent Care Center or Emergency Room Smoking is Dangerous to Your Health. Avoid second hand smoke Call the 24-hour hour crisis hotline for domestic abuse at Mónica Alvarado MD R2 Jan 18, 2018 09:26
--- NOTE | 2018-01-18 09:27 | HHI.DS ---
Discharge Summary Admission Date Jan 16, 2018 at 10:36 Discharge Date: Jan 18, 2018 Admitting Diagnosis pancreatitis (1) Pancreatitis Plan: Likely Alcohol-induced pancreatitis; gallbladder US negative for stones IV fluid hydration at 200 mls/hr Pain control with scheduled IV Toradol Dilaudid for breakthrough pain Zofran for nausea control continue to advance diet this AM CT with contrast: Slight indistinctness of the pancreas, minimal peripancreatic stranding, pancreatitis cannot be excluded. Correlation with amylase/lipase levels US gallbladder: minimal amount of ascites inferior to liver and kidney. Otherwise negative. ICD Codes: K85.90 - Acute pancreatitis without necrosis or infection, unspecified Status: Acute (2) Alcohol use Plan: Possible history of alcohol abuse CIWA protocol: CIWA score has been 0 throughout stay Thiamine, Folate, MVI Urine drug screen positive for opiates and marijuana. Alcohol level of 6 after hours of fluids. Of note, pt received opiates prior to urine drug screen collection. ICD Codes: Z78.9 - Other specified health status Status: Chronic (3) Normocytic anemia Plan: Uncertain if acute or chronic. No obvious active bleeding. Hemodynamically stable. This may be secondary to acute illness. f/u CBC this AM before D/C ICD Codes: D64.9 - Anemia, unspecified Status: Acute (4) Hypokalemia Plan: Mild. Asymptomatic. Replete ICD Codes: E87.6 - Hypokalemia Status: Acute (5) fen/ppx Plan: Fluids: PO fluids Electrolytes: f/u BMP this AM before d/c nutrition: regular diet this AM GI ppx: continue protonix 20mg daily DVT ppx: continue lovenox daily Status: Chronic Brief History PREVIOUS H&P IS ENTERED IN ERROR (FROM DIFFERENT PATIENT), THIS IS THE ACTUAL H& P 42 y/o M, comes in with abdominal pain. He woke up at 4:30AM and felt severe pain in the LLQ radiating to the epigastric area. The night before he had presented he had had a pizza and 6 beers. The pain is sharp like a knife. He denies any radiation down the back or groin areas. The pain has been getting progressively worse through the day. He has been nauseas as well and has not been able to eat anything. Denies constipation/diarrhea. Denies any change in urination. His last drink was the 6 beers he drinks last night. He states he does frequently drink 6 beers casually. He has about 1 shot every 2 weeks of liquor. He usually just drinks on weekends. Denies any chest pain/shortness of breath/dizziness. CBC/BMP: 01/18/18 0827 01/17/18 0430 Significant Findings Laboratory Tests Test 01/16/18 08:30 01/16/18 12:35 01/16/18 12:39 01/16/18 16:30 White Blood Count 12.2 TH/MM3 (4.0-11.0) Red Blood Count 4.24 MIL/MM3 (4.50-5.90) Hemoglobin 12.9 GM/DL (13.0-17.0) Hematocrit 38.4 % (39.0-51.0) Neutrophils (%) (Auto) 84.4 % (16.0-70.0) Neutrophils # (Auto) 10.3 TH/MM3 (1.8-7.7) Random Glucose 136 MG/DL (74-106) 110 MG/DL (74-106) Aspartate Amino Transf (AST/SGOT) 94 U/L (15-37) 67 U/L (15-37) Alanine Aminotransferase (ALT/SGPT) 79 U/L (12-78) Chloride Level 109 MEQ/L (98-107) 110 MEQ/L (98-107) Lipase 3702 U/L (73-393) Urine Specific [place] GREATER THAN 1.050 Urine Mucus FEW /lpf (OCC) Calcium Level 8.3 MG/DL (8.5-10.1) Total Bilirubin 1.1 MG/DL (0.2-1.0) Fasting Glucose 110 MG/DL (74-99) Ethyl Alcohol Level 6 MG/DL (0-5) Urine Opiates Screen POS (NEG) Urine Cannabinoids Screen POS (NEG) Test 01/17/18 04:30 01/18/18 08:27 Red Blood Count 3.47 MIL/MM3 (4.50-5.90) 3.98 MIL/MM3 (4.50-5.90) Hemoglobin 10.7 GM/DL (13.0-17.0) 11.9 GM/DL (13.0-17.0) Hematocrit 31.6 % (39.0-51.0) 36.5 % (39.0-51.0) Neutrophils (%) (Auto) 78.3 % (16.0-70.0) Blood Urea Nitrogen 4 MG/DL (7-18) Total Protein 5.7 GM/DL (6.4-8.2) Albumin 2.8 GM/DL (3.4-5.0) Calcium Level 8.1 MG/DL (8.5-10.1) Total Bilirubin 1.3 MG/DL (0.2-1.0) Potassium Level 3.2 MEQ/L (3.5-5.1) Chloride Level 113 MEQ/L (98-107) Lipase 3323 U/L (73-393) PE at Discharge GENERAL: SKIN: Warm and dry. HEAD: Normocephalic. EYES: No scleral icterus. No injection or drainage. NECK: Supple, trachea midline. No JVD or lymphadenopathy. CARDIOVASCULAR: Regular rate and rhythm without murmurs, gallops, or rubs. RESPIRATORY: Breath sounds equal bilaterally. No accessory muscle use. GASTROINTESTINAL: Abdomen soft, non-tender, nondistended. MUSCULOSKELETAL: No cyanosis, or edema. BACK: Nontender without obvious deformity. No CVA tenderness. Hospital Course 42 y/o M, comes in with abdominal pain and is found to have alcohol induced pancreatitis. Gallbladder ultrasound and CT were negative. The patient was able to advance his diet very quickly and was discharged after 2 night stay. The patient did admit to a history of alcohol abuse, however he did not go through withdrawal during the stay. His CIWA scores remained at 0. His UDS was positive for alcohol after much hydration on initial day of admission. Pt Condition on Discharge: Stable Discharge Instructions Continued Medications: Miscellaneous (No Current Meds) [facility] [place]var[place] MD R2 Jan 18, 2018 09:27
[2018-01-18 09:38] LABS: BICARBONATE 23.7 MEQ/L (21.0-32.0); CALCIUM 8.9 MG/DL (8.5-10.1); CREATININE 0.75 MG/DL (0.60-1.30)
[2018-01-19] MEDS ORDERED: THIAMINE HCL 100 MG TAB PO SCH (09:00)
== END 2018-01-18 11:23 | disposition home or self-care (01) ==
LOC: NEPC 08:10 → INTOOBSV 10:36 → NEDA 10:36 → NEPFCDU 18:08
PROVIDERS: ADMIT Family Medicine; ATTEND Family Medicine
DX: K85.20 Alcohol induced acute pancreatitis without necrosis or infection (principal); I10 Essential (primary) hypertension; D64.9 Anemia, unspecified; E87.6 Hypokalemia; K21.9 Gastro-esophageal reflux disease without esophagitis; F12.90 Cannabis use, unspecified, uncomplicated; Z72.0 Tobacco use
CPT/HCPCS: 74177; 76705; 80048; 80053; 80307; 81001; 82947; 83690; 84478; 85025; 85027; 86140; 96361; 96365; 96366; 96372; 96375; 96376; 99285; G0378; J1170; J1650; J1885; J2270; J3411; J7030; J7040; Q9967

== ENCOUNTER 2018-08-13 14:40 | Inpatient (IN) ==
--- NOTE | 2018-08-13 16:27 | ED ---
HPI General Chief complaint: Abdominal Pain Stated complaint: Stomach Pain Complaint Time Seen by Provider: 08/13/18 16:15 History of Present Illness HPI narrative: 43-year-old male with a history of pancreatitis presents to the ED for evaluation of abdominal pain. Patient states the pain began last night after drinking beer. Patient states he has a history of pancreatitis and this pain is similar. States the pain is periumbilical. States it is constant. Aggravated by alcohol. Denies any alleviating factors. States he did have nausea and vomiting last night but none since then. States he had diarrhea last night, has not had a bowel movement today. Denies any fever, chills, chest pain, shortness of breath, dysuria, hematuria. No other complaints. Related Data Allergies Allergy/AdvReac Type Severity Reaction Status Date / Time No Known Allergies Allergy Verified 08/13/18 16:41 Review of Systems ROS: all other systems reviewed are negative PMFSH Medical History Medical History Patient denies medical problems (Acute) Surgical History Surgical History No history of previous surgery (Acute) Social History Social History Substance History: Active Abuse Second Hand Smoke Exposure: Yes Smoking Status: Current every day smoker Tobacco Type: Cigarettes How Often Do You Have a Drink Containing Alcohol: 2 to 3 times a week Exam Narrative Exam Narrative: GENERAL: Well-nourished and well-developed pleasant patient in no acute distress who is nontoxic appearing. SKIN: Warm and dry. HEAD: Normocephalic and atraumatic. EYES: No injection, drainage, or hyphema noted. PERRLA. EOMI. ENT: No nasal drainage noted. Oropharynx is clear. NECK: Supple and the trachea is midline. CARDIOVASCULAR: Regular rate and rhythm. RESPIRATORY: Breath sounds are equal bilaterally with no accessory muscle use, wheezing, rhonchi, or crackles. GASTROINTESTINAL: Tenderness to palpation of periumbilical, epigastric and left upper quadrant. Abdomen is soft and nondistended. MUSCULOSKELETAL: No obvious deformities, swelling, cyanosis, or ecchymosis is present throughout the upper and lower extremities. Patient has full range of motion without any signs of neurovascular compromise. Distal pulses are 2+ throughout. NEUROLOGICAL: Awake, alert, and oriented. Normal speech and gait. Cranial nerves are grossly intact. Course Initial Documented Vital Signs Temperature 97.4 F L 08/13/18 14:53 Pulse Rate 85 08/13/18 14:53 Respiratory Rate 18 08/13/18 14:53 Blood Pressure 144/70 H 08/13/18 14:53 Pulse Oximetry 98 08/13/18 14:53 Last Documented Vital Signs Temperature 97.4 F L 08/13/18 14:53 Pulse Rate 68 08/13/18 16:50 Respiratory Rate 16 08/13/18 16:50 Blood Pressure 129/79 08/13/18 16:50 Pulse Oximetry 100 08/13/18 16:50 Medical Decision Making LIZANDRO Attestation LIZANDRO supervised visit: Yes Attestation: I, Dr. Duncan, have reviewed the advance practice practitioner's documentation and am in agreement, met with the patient face to face, made the diagnosis, and the medical decision making was done by me. *My assessment and Findings: Acute pancreatitis. Patient has a history of alcohol use. Patient's had previous history of pancreatitis. He will be admitted for bowel rest and IV pain control. Case was discussed with Dr. Crabtree. MDM Narrative Medical decision making narrative: 43-year-old male presents to the emergency department for evaluation of abdominal pain after drink alcohol. Patient is afebrile, vital signs are stable. IV access is obtained, labs of been drawn and sent. Patient is placed on cardiac telemetry and pulse oximetry monitoring. Patient administered morphine 4 mg IV and Zofran 4 mg IV with IV fluid. CBC shows slightly elevated white count of 14.4, unremarkable otherwise. CMP is unremarkable. Lipase shows 2735. Ua shows trace ketones, otherwise unremarkable. My attending physician spoke with Dr. Crabtree [facility] who accepts patient for admission for pancreatitis. Medical Screen Exam Complete: Yes Emergency Medical Condition: Yes Differential Diagnosis Differential Diagnosis: Pancreatitis versus gastroenteritis versus gastritis versus colitis Lab Data Result diagrams: 08/13/18 16:50 08/13/18 16:50 Lab Results 08/13/18 08/13/18 Range/Units 16:50 16:50 WBC 14.4 H (4.0-11.0) th/mm3 RBC 4.18 L (4.50-5.90) mil/mm3 Hgb 13.2 (13.0-17.0) gm/dL Hct 38.2 L (39.0-51.0) % MCV 91.3 (80.0-100.0) fL MCH 31.6 (27.0-34.0) pg MCHC 34.6 (32.0-36.0) % RDW 12.8 (11.6-17.2) % Plt Count 306 (150-450) th/mm3 MPV 7.1 (7.0-11.0) fL Neut % (Auto) 87.4 H (16.0-70.0) % Lymph % (Auto) 5.1 L (9.0-44.0) % [place] % (Auto) 7.3 (0.0-8.0) % Eos % (Auto) 0.2 (0.0-4.0) % Baso % (Auto) 0.0 (0.0-2.0) % Neut # (Auto) 12.6 H (1.8-7.7) th/mm3 Lymph # (Auto) 0.7 L (1.0-4.8) th/mm3 [place] # (Auto) 1.1 H (0.0-0.9) th/mm3 Eos # (Auto) 0.0 (0.0-0.4) th/mm3 Baso # (Auto) 0.0 (0.0-0.2) th/mm3 WBC Differential . Differential Comment Auto diff final Sodium 135 L (136-145) meq/L Potassium 4.0 (3.5-5.1) meq/L Chloride 98 (98-107) meq/L Carbon Dioxide 24.6 (21.0-32.0) meq/L Anion Gap 12 (5-15) meq/L BUN 9 (7-18) mg/dL Creatinine 0.96 (0.60-1.30) mg/dL Random Glucose 96 (74-106) mg/dL Calcium 9.6 (8.5-10.1) mg/dL Magnesium 2.3 (1.5-2.5) mg/dL Total Bilirubin 2.6 H (0.2-1.0) mg/dL AST 38 H (15-37) U/L ALT 33 (12-78) U/L Alkaline Phosphatase 79 (45-117) U/L Total Protein 8.1 (6.4-8.2) g/dL Albumin 4.3 (3.4-5.0) g/dL Lipase 2735 H (73-393) U/L Discharge Plan Discharge Disposition Patient Disposition: 30 Still Patient Discharge Details Diagnosis: Pancreatitis Physicians Team ED Provider: Brigido Duncan ED Midlevel Provider: Brandy Guerrero Primary Care Provider: Primary Care Ani Gan Attending Provider: Zeeshan Crabtree Discharge Interventions Interventions: Vital Signs Last Done: 08/13/18 16:50 Status ED Status: Admitted Patient
[2018-08-13] MEDS ORDERED: Sod Chloride 0.9% Inj 1,000 ML IV.SIG ONE (16:28)
[2018-08-13] MEDS ORDERED: Morphine Inj 4 MG/ML Vial IV.PUSH ONE (16:28)
[2018-08-13 17:03] LABS: Eos % (Auto) 0.2 % (0.0-4.0); Hematocrit 38.2 % (39.0-51.0); Hemoglobin 13.2 gm/dL (13.0-17.0); Lymph # (Auto) 0.7 th/mm3 (1.0-4.8); Lymph % (Auto) 5.1 % (9.0-44.0); Mean Corpuscular HGB Conc 34.6 % (32.0-36.0); Mean Corpuscular Hemoglobin 31.6 pg (27.0-34.0); Mean Corpuscular Volume 91.3 fL (80.0-100.0); Mean Platelet Volume 7.1 fL (7.0-11.0); Mono # (Auto) 1.1 th/mm3 (0.0-0.9); Mono % (Auto) 7.3 % (0.0-8.0); Neut # (Auto) 12.6 th/mm3 (1.8-7.7); Neut % (Auto) 87.4 % (16.0-70.0); Platelet Count 306 th/mm3 (150-450); Red Blood Count 4.18 mil/mm3 (4.50-5.90); Red Cell Distribution Width 12.8 % (11.6-17.2); White Blood Count 14.4 th/mm3 (4.0-11.0)
[2018-08-13 17:18] LABS: Albumin 4.3 g/dL (3.4-5.0); Anion Gap 12 meq/L (5-15); Aspartate Aminotransferase 38 U/L (15-37); Blood Urea Nitrogen 9 mg/dL (7-18); Calcium 9.6 mg/dL (8.5-10.1); Carbon Dioxide 24.6 meq/L (21.0-32.0); Chloride 98 meq/L (98-107); Glucose,Random 96 mg/dL (74-106); Magnesium 2.3 mg/dL (1.5-2.5); Sodium 135 meq/L (136-145)
[2018-08-13 17:20] LABS: Alanine Aminotransferase 33 U/L (12-78)
[2018-08-13 17:21] LABS: Alkaline Phosphatase 79 U/L (45-117); Lipase 2735 U/L (73-393); Total Protein 8.1 g/dL (6.4-8.2)
[2018-08-13] MEDS ORDERED: Bisacodyl 10 MG Supp RECTAL PRN (17:52)
[2018-08-13] MEDS ORDERED: Acetaminophen 325 MG Tablet PO PRN (17:52)
[2018-08-13] MEDS ORDERED: LORazepam 1 MG Tablet PO PRN (18:13)
[2018-08-13] MEDS ORDERED: Haloperidol Inj 5 MG/ML Ampul IV.PUSH PRN (18:13)
--- NOTE | 2018-08-13 18:19 | P.HPIM ---
History of Present Illness Primary Care Physician: No Primary Care Physician Chief Complaint: abdominal pain History of Present Illness: patient is a 43 y/o male with history of pancreatitis, and alcohol abuse, who presented to ER with abdominal pain. he says that the pain started yesterday. pain is epigastric/periumbilical and was associated with nausea and emesis. he had some diarrhea yesterday which has resolved. he had some chills but with no fever. he says that he has a few drinks a day and the last drink was yesterday. Inpatient Certification: I certify that the inpatient services were ordered in accordance with Medicare regulations governing the order. This includes certification that hospital inpatient services are reasonable and necessary and in the case of services not specified as inpatient-only under 42 CFR 419.22(n), that they are appropriately provided as inpatient services in accordance to with the 2-midnight benchmark under 43 CFR 412.3(e) Estimated Total Length of Stay (Days): 3 Plans for Post Hospital Care: Not yet determined Review of Systems All other systems reviewed negative except as stated [facility] - History History Provided By: Patient - Medical History Medical History: Medical History (Last Reviewed 08/13/18 @ 18:17 by Iris Bermudez MD) Pancreatitis - Surgical History Surgical History: Surgical History (Last Reviewed 08/13/18 @ 18:17 by Iris Bermudez MD) No history of previous surgery - Family History Family History: Family History (Last Reviewed 08/13/18 @ 18:17 by Iris Bermduez MD) Other No pertinent family history - Tobacco History Second Hand Smoke Exposure: Yes Tobacco Use In Past 30 Days: Yes Smoking Status: Current every day smoker Tobacco Type: Cigarettes - Alcohol History How Often Do You Have a Drink Containing Alcohol: 2 to 3 times a week - Substance Use History Substance History: Active Abuse - Substance Use Type Marijuana Status: Active Route Used: By Mouth, Inhalation - Immunization History Tetanus Immunization: Unsure Medications and Allergies Active Medications: Active Medications Acetaminophen (Tylenol) 650 mg PO Q4H PRN PRN Reason: Temp > 100.4 Al Hydroxide/Mg Hydroxide (Milk Of Magnesia Liq) 30 ml PO Q12H PRN PRN Reason: Mild Constipation Bisacodyl (Dulcolax Supp) 10 mg RECTAL DAILY PRN PRN Reason: SEVERE CONSITIPATION Sodium Chloride (Ns Inj) 1,000 mls @ 175 mls/hr IV.CONT .Q5H43M NICOLASA Lactulose (Lactulose Liq) 30 ml PO DAILY PRN PRN Reason: SEVERE CONSITIPATION Ondansetron HCl (Zofran Inj) 4 mg IV.PUSH Q6H PRN PRN Reason: NAUSEA OR VOMITING Sennosides (Senokot) 17.2 mg PO Q12H PRN PRN Reason: Moderate Constipation Sodium Chloride (Ns Flush) 2 ml IV.FLUSH PRN PRN PRN Reason: FLUSH AFTER USING IV ACCESS Last Admin: 08/13/18 16:47 Dose: 2 ml Allergies Allergy/AdvReac Type Severity Reaction Status Date / Time No Known Allergies Allergy Verified 08/13/18 16:41 Exam Vital signs: Vital Signs 08/13/18 14:53 08/13/18 16:50 Temperature 97.4 F L Pulse Rate 85 68 Respiratory Rate 18 16 Blood Pressure 144/70 H 129/79 Pulse Oximetry 98 100 Intake & Output 08/12/18 08/13/18 08/13/18 18:59 06:59 18:59 Weight 74.843 kg - Constitutional no acute distress - Routine HEENT Exam Eye: Present: PERRL - Routine Neck Exam Present: supple - Routine Respiratory Exam Present: CTA bilaterally - Routine Cardiovascular Exam Present: RRR - Routine Abdominal Exam Present: soft, tenderness (periumbilical tenderness) - Routine Extremities Exam Comments: no pedal edema. - Routine Neurological Exam Present: alert, oriented X3 Results - Labs CBC & Chem 7: 08/13/18 16:50 08/13/18 16:50 Labs: Short CBC 08/13/18 Range/Units 16:50 WBC 14.4 H (4.0-11.0) th/mm3 Hgb 13.2 (13.0-17.0) gm/dL Hct 38.2 L (39.0-51.0) % Plt Count 306 (150-450) th/mm3 BMP 08/13/18 16:50 Sodium 135 L Potassium 4.0 Chloride 98 Carbon Dioxide 24.6 BUN 9 Creatinine 0.96 Calcium 9.6 Liver Function 08/13/18 Range/Units 16:50 Total Bilirubin 2.6 H (0.2-1.0) mg/dL AST 38 H (15-37) U/L ALT 33 (12-78) U/L Alkaline Phosphatase 79 (45-117) U/L Albumin 4.3 (3.4-5.0) g/dL Caprini VTE Risk Assessment Caprini VTE Risk Assessment: No/Low Risk (score <= 1) Caprini Risk Assessment Model: Point Value = 1 Point Value = 2 Point Value = 3 Point Value = 5 Age 41-60 Minor surgery BMI > 25 kg/m2 Swollen legs Varicose veins or History of unexplained or recurrent spontaneous Oral contraceptives or hormone replacement Sepsis (< 1 month) Serious lung disease, including pneumonia (< 1 month) Abnormal pulmonary function Acute myocardial infarction Congestive heart failure (< 1 month) History of inflammatory bowel disease Medical patient at bed rest Age 61-74 Arthroscopic surgery Major open surgery (> 45 min) Laparoscopic surgery (> 45 min) Malignancy Confined to bed (> 72 hours) Immobilizing plaster cast Central venous access Age >= 75 History of VTE Family history of VTE Factor V Leiden Prothrombin [id number] Lupus anticoagulant Anticardiolipin antibodies Elevated serum homocysteine Heparin-induced thrombocytopenia Other congenital or acquired thrombophilia Stroke (< 1 month) Elective arthroplasty Hip, pelvis, or leg fracture Acute spinal cord injury (< 1 month) Prophylaxis Regimen: Total Risk Factor Score Risk Level Prophylaxis Regimen 0-1 Low Early ambulation 2 Moderate Order ONE of the following: *Sequential Compression Device (SCD) *Heparin 5000 units SQ BID 3-4 Higher Order ONE of the following medications: *Heparin 5000 units SQ TID *Enoxaparin/Lovenox 40 mg SQ daily (WT < 150 kg, CrCl > 30 mL/min) *Enoxaparin/Lovenox 30 mg SQ daily (WT < 150 kg, CrCl > 10-29 mL/min) *Enoxaparin/Lovenox 30 mg SQ BID (WT < 150 kg, CrCl > 30 mL/min) AND/OR *Sequential Compression Device (SCD) 5 or more Highest Order ONE of the following medications: *Heparin 5000 units SQ TID (Preferred with Epidurals) *Enoxaparin/Lovenox 40 mg SQ daily (WT < 150 kg, CrCl > 30 mL/min) *Enoxaparin/Lovenox 30 mg SQ daily (WT < 150 kg, CrCl > 10-29 mL/min) *Enoxaparin/Lovenox 30 mg SQ BID (WT < 150 kg, CrCl > 30 mL/min) AND *Sequential Compression Device (SCD) Assessment and Plan - Plan A/P - acute pancreatitis- alcohol induced keep NPO and start on IV fluid- continue with pain control and antiemetics as needed. -alcohol abuse start on CIWA protocol- counselled on drinking cessation. Discussed Condition With: the patient. Discharge Planning: home when has clinically improved.
[2018-08-13] MEDS: Sod Chloride 0.9% Inj 1,000 ML IV.CONT SCH ×2 (18:35→20:47)
[2018-08-13] MEDS: Morphine Inj 4 MG/ML Vial IV.PUSH PRN (20:41)
[2018-08-14] MEDS: Sod Chloride 0.9% Inj 1,000 ML IV.CONT SCH ×5 (01:18→23:18)
[2018-08-14] MEDS: Morphine Inj 4 MG/ML Vial IV.PUSH PRN ×5 (01:24→23:16)
[2018-08-14 06:09] LABS: Baso % (Auto) 0.2 % (0.0-2.0); Eos # (Auto) 0.1 th/mm3 (0.0-0.4); Eos % (Auto) 1.2 % (0.0-4.0); Hematocrit 36.5 % (39.0-51.0); Hemoglobin 12.1 gm/dL (13.0-17.0); Lymph # (Auto) 1.3 th/mm3 (1.0-4.8); Lymph % (Auto) 11.1 % (9.0-44.0); Mean Corpuscular HGB Conc 33.2 % (32.0-36.0); Mean Corpuscular Hemoglobin 30.3 pg (27.0-34.0); Mean Corpuscular Volume 91.4 fL (80.0-100.0); Mean Platelet Volume 8.3 fL (7.0-11.0); Mono # (Auto) 0.8 th/mm3 (0.0-0.9); Mono % (Auto) 6.9 % (0.0-8.0); Neut # (Auto) 9.7 th/mm3 (1.8-7.7); Neut % (Auto) 80.6 % (16.0-70.0); Platelet Count 297 th/mm3 (150-450); Red Blood Count 3.99 mil/mm3 (4.50-5.90); Red Cell Distribution Width 12.6 % (11.6-17.2); White Blood Count 11.9 th/mm3 (4.0-11.0)
[2018-08-14 06:13] LABS: Chloride 103 meq/L (98-107); Potassium 3.6 meq/L (3.5-5.1); Sodium 138 meq/L (136-145)
[2018-08-14 06:17] LABS: Albumin 3.4 g/dL (3.4-5.0); Anion Gap 9 meq/L (5-15); Blood Urea Nitrogen 6 mg/dL (7-18); Calcium 8.3 mg/dL (8.5-10.1); Carbon Dioxide 26.2 meq/L (21.0-32.0); Glucose,Random 89 mg/dL (74-106)
[2018-08-14 06:20] LABS: Alanine Aminotransferase 27 U/L (12-78); Aspartate Aminotransferase 25 U/L (15-37); Glomerular Filtration Rate Greater Than 89 mL/min (>89)
[2018-08-14 06:22] LABS: Total Protein 6.9 g/dL (6.4-8.2)
[2018-08-14 06:23] LABS: Alkaline Phosphatase 67 U/L (45-117); Lipase 1903 U/L (73-393)
--- NOTE | 2018-08-14 07:30 | P.PNIM ---
Subjective Interval history: Follow up pancreatitis. Patient seen and examined, lying in bed with complaints of continued mild pain. He is tolerating clear liquids this morning. Will advance as tolerated. No signs of alcohol withdrawal. Continue to monitor. Vital signs stable. No acute complaints. Assess tolerance of p.o. intake awaiting clinical improvement for discharge. Physical Exam Vital signs: Vital Signs 08/13/18 14:53 08/13/18 16:50 08/13/18 18:36 Temperature 97.4 F L Pulse Rate 85 68 62 Respiratory Rate 18 16 16 Blood Pressure 144/70 H 129/79 125/72 Pulse Oximetry 98 100 100 08/13/18 20:00 08/14/18 00:00 Temperature 96.7 F L 97.8 F Pulse Rate 65 59 L Respiratory Rate 18 18 Blood Pressure 138/73 129/77 Pulse Oximetry 94 L 95 Intake & Output 08/13/18 08/14/18 08/14/18 18:59 06:59 18:59 Intake Total 1000 / 1000 1000 / 1000 Output Total 800 / 800 Balance 1000 / 1000 200 / 200 Weight 74.843 kg 66 kg Intake: IV 1000 / 1000 1000 / 1000 NS Inj 1,000 ML @ 150 mls/hr IV 1000 / 1000 .CONT .Q6H40M NICOLASA Rx#:[id number] NS Inj 1,000 ML @ Wide Open IV. 1000 / 1000 SIG BOLUS ONE Rx#:[id number] Oral 0 / 0 Output: Urine 800 / 800 Other: Date of Last Bowel Movement 08/12/18 Weight On Admission 67.1 kg Narrative: GENERAL: Well-developed, well-nourished patient in [facility]. SKIN: Warm and dry. No rash. HEAD: Normocephalic. Atraumatic. EYES: Pupils equal and round. No scleral icterus. No injection or drainage. ENT: No nasal bleeding or discharge. Mucous membranes pink and moist. NECK: Supple. Trachea midline. CARDIOVASCULAR: Regular rate and rhythm. S1, S2 noted. No murmur appreciated. RESPIRATORY: No accessory muscle use. Clear to auscultation. Breath sounds equal bilaterally. GASTROINTESTINAL: Abdomen soft, nondistended. Normoactive bowel sounds x4. Mild tenderness to palpation of left upper quadrant MUSCULOSKELETAL: No obvious deformities. Extremities without clubbing, cyanosis , or edema. NEUROLOGICAL: Awake and alert. No obvious cranial nerve deficits. Motor grossly within normal limits. 5/5 muscle strength in bilateral upper and lower extremities. Normal speech. PSYCHIATRIC: Appropriate mood and affect; insight and judgment normal. Results - Labs CBC & Chem 7: 08/14/18 04:50 08/14/18 04:50 Laboratory Results - last 24 hr 08/13/18 08/13/18 08/14/18 16:50 16:50 04:50 CBC w Diff Auto diff final WBC 14.4 H 11.9 H RBC 4.18 L 3.99 L Hgb 13.2 12.1 L Hct 38.2 L 36.5 L MCV 91.3 91.4 MCH 31.6 30.3 MCHC 34.6 33.2 RDW 12.8 12.6 Plt Count 306 297 MPV 7.1 8.3 Neut % (Auto) 87.4 H 80.6 H Lymph % (Auto) 5.1 L 11.1 [place] % (Auto) 7.3 6.9 Eos % (Auto) 0.2 1.2 Baso % (Auto) 0.0 0.2 Neut # (Auto) 12.6 H 9.7 H Lymph # (Auto) 0.7 L 1.3 [place] # (Auto) 1.1 H 0.8 Eos # (Auto) 0.0 0.1 Baso # (Auto) 0.0 0.0 WBC Differential . . Differential Comment Auto diff final . Sodium 135 L Potassium 4.0 Chloride 98 Carbon Dioxide 24.6 Anion Gap 12 BUN 9 Creatinine 0.96 Estimated GFR Random Glucose 96 Calcium 9.6 Magnesium 2.3 Total Bilirubin 2.6 H AST 38 H ALT 33 Alkaline Phosphatase 79 Total Protein 8.1 Albumin 4.3 Lipase 2735 H 08/14/18 04:50 CBC w Diff WBC RBC Hgb Hct MCV MCH MCHC RDW Plt Count MPV Neut % (Auto) Lymph % (Auto) [place] % (Auto) Eos % (Auto) Baso % (Auto) Neut # (Auto) Lymph # (Auto) [place] # (Auto) Eos # (Auto) Baso # (Auto) WBC Differential Differential Comment Sodium 138 Potassium 3.6 Chloride 103 Carbon Dioxide 26.2 Anion Gap 9 BUN 6 L Creatinine 0.76 Estimated GFR Greater than 89 Random Glucose 89 Calcium 8.3 L D Magnesium Total Bilirubin 2.0 H AST 25 ALT 27 Alkaline Phosphatase 67 Total Protein 6.9 D Albumin 3.4 D Lipase 1903 H Assessment and Plan - Assessment (1) Pancreatitis Code(s): K85.90 - Acute pancreatitis without necrosis or infection, unspecified Status: Acute - Plan This is a 43-year-old male patient with: Acute pancreatitis- alcohol induced -Attempt a clear liquid diet today and advance as tolerated. Continue on IV fluids, decrease rate. Continue pain control IV morphine available as needed. Antiemetics as needed. -Awaiting clinical improvement for discharge. Alcohol abuse -Started on CIWA protocol. No signs of withdrawal at this time. -Counselled on drinking cessation. Discharge Planning: Awaiting clinical improvement for discharge. (1) Pancreatitis Qualifiers: Chronicity: acute Pancreatitis type: alcohol induced Acute pancreatitis complication: no infection or necrosis Qualified Code(s): K85.20 - Alcohol induced acute pancreatitis without necrosis or infection
[2018-08-14] MEDS ORDERED: Influenza (Quadrivalent) Vaccine 0.5 ML Syringe IM ONE (13:00)
[2018-08-15] MEDS: Sod Chloride 0.9% Inj 1,000 ML IV.CONT SCH (03:36)
[2018-08-15] MEDS: Morphine Inj 4 MG/ML Vial IV.PUSH PRN (05:50)
--- NOTE | 2018-08-15 07:26 | P.DS ---
Date of admission: 08/13/18 17:59 Primary care physician: No Primary Care Physician Anticipated date of discharge: 08/15/18 Brief History from admission: patient is a 43 y/o male with history of pancreatitis, and alcohol abuse, who presented to ER with abdominal pain. he says that the pain started yesterday. pain is epigastric/periumbilical and was associated with nausea and emesis. he had some diarrhea yesterday which has resolved. he had some chills but with no fever. he says that he has a few drinks a day and the last drink was yesterday. Patient update on day of discharge: Patient seen and examined, lying in bed comfortably no apparent distress. Much improved today. Pain is controlled. He feels at his baseline. Advised not to drink any alcohol. Patient is encouraged and motivated not to drink anymore alcohol. Vital signs stable. DS: Diagnosis - Discharge Diagnosis (1) Pancreatitis Status: Acute DS: Summary Hospital Course: This is a 43-year-old male patient with alcohol induced acute pancreatitis. Tolerating Po intake now, pain is controlled, lipase level trending down nicely. Was given IVF and transitioned to PO intake. Patient has a history of alcohol abuse. No signs of withdrawal. Patient is desiring to stop drinking. He is stable for discharge. Counselled on drinking cessation. - Time Spent with Patient Total time spent providing and/or coordinating discharge services: Greater than 30 minutes - Quality: VTE Deep Vein Thrombosis/Pulmonary Embolism Present on Admission: No Exam Vital signs: Vital Signs 08/14/18 08:00 08/14/18 12:00 08/14/18 16:00 Temperature 97.6 F 98.2 F 98.1 F Pulse Rate 58 L 63 67 Respiratory Rate 19 20 20 Blood Pressure 148/67 H 135/89 138/83 Pulse Oximetry 98 96 98 08/14/18 19:52 08/14/18 20:00 08/14/18 23:37 Temperature 97.0 F L Pulse Rate 88 Respiratory Rate 20 18 18 Blood Pressure 161/83 H Pulse Oximetry 94 L 08/15/18 00:00 08/15/18 06:12 Temperature 96.5 F L Pulse Rate 56 L Respiratory Rate 18 18 Blood Pressure 125/63 Pulse Oximetry 96 Intake & Output 08/14/18 08/15/18 08/15/18 18:59 06:59 18:59 Intake Total 1840 / 1840 1240 / 1240 Output Total 540 / 540 1000 / 1000 Balance 1300 / 1300 240 / 240 Intake: IV 1000 / 1000 1000 / 1000 NS Inj 1,000 ML @ 75 mls/hr IV. 1000 / 1000 1000 / 1000 CONT .[id number] NICOLASA Rx#:[id number] Oral 480 / 480 240 / 240 Oral Supplement 360 / 360 Output: Urine 540 / 540 1000 / 1000 Other: # Voids 1 Date of Last Bowel Movement 08/12/18 08/12/18 Narrative: GENERAL: Well-developed, well-nourished patient in [facility]. SKIN: Warm and dry. No rash. HEAD: Normocephalic. Atraumatic. EYES: Pupils equal and round. No scleral icterus. No injection or drainage. ENT: No nasal bleeding or discharge. Mucous membranes pink and moist. NECK: Supple. Trachea midline. CARDIOVASCULAR: Regular rate and rhythm. S1, S2 noted. No murmur appreciated. RESPIRATORY: No accessory muscle use. Clear to auscultation. Breath sounds equal bilaterally. GASTROINTESTINAL: Abdomen soft, nondistended. Normoactive bowel sounds x4. Mild tenderness to palpation of left upper quadrant MUSCULOSKELETAL: No obvious deformities. Extremities without clubbing, cyanosis , or edema. NEUROLOGICAL: Awake and alert. No obvious cranial nerve deficits. Motor grossly within normal limits. 5/5 muscle strength in bilateral upper and lower extremities. Normal speech. PSYCHIATRIC: Appropriate mood and affect; insight and judgment normal. Results Procedures completed during hospitalization: None. Labs on day of discharge: Labs from last 24 hours 08/15/18 05:00 Lipase 614 H Discharge Plan - Discharge Disposition Patient Disposition: Discharge Home - Discharge Condition Condition: Good - Discharge Order Discharge Orders: Discharge Order (Routine); Ordered 08/15/18 Ordered By: Ifrah Coley - Discharge Details Anticipated Discharge Date: 08/15/18 - Physicians Team Primary Care Provider: Primary Care Elvia,No Attending Provider: Billie Gee
[2018-08-15 09:18] VITALS: BP 127/84; PULSE 70; RESP 20; TEMP 97.4; O2SAT 97
== END 2018-08-15 10:07 | disposition home or self-care (01) ==
LOC: NEPC 14:40 → NEDA 17:59 → PH3 19:40
PROVIDERS: ADMIT Hospitalist; ATTEND Hospitalist